=== PATIENT | female | born 2000 | race Hispanic/Latino ===

== ENCOUNTER 2018-02-20 08:02 | Inpatient (IN) | payer OTHER ==
[~2018-02-20] VITALS: Ht 160 cm; Wt 110.2 kg
[~2018-02-20 08:02] MED LIST: CLARITIN10 MG PO; POLYTRIM O200 GTT/BO OPH
[2018-02-20] MEDS ORDERED: PRENATAL TABLE1 EAC2 PO (08:37)
[2018-02-20] MEDS ORDERED: VITAMIN D250000 UNIT PO (08:38)
[2018-02-20 08:54] LABS: ABSOLUTE BASOPHIL COUNT 0 /CUMM (0.0-0.2); ABSOLUTE EOSINOPHIL COUNT 0.1 /CUMM (0.0-0.7); ABSOLUTE GRANULOCYTE CT 7.9 /CUMM (1.4-6.5); ABSOLUTE LYMPH COUNT 2.1 /CUMM (1.2-3.4); ABSOLUTE MONOCYTE COUNT 0.9 /CUMM (0.10-0.60); BASOPHIL % 0.4 % (0.0-2.0); EOSINOPHIL % 0.7 % (0-5); GRANULOCYTE % 71.6 % (42.2-75.2); HEMATOCRIT 34.2 % (37-47); MEAN CORPUSCULAR HGB 24.4 PG (27.0-31.0); MEAN CORPUSCULAR HGB CONC 32.7 G/DL (33.0-37.0); MEAN CORPUSCULAR VOLUME 74.6 FL (81.0-99.0); MEAN PLATELET VOLUME 9.2 FL (7.4-10.4); PLATELET COUNT 361 /CUMM (130-400); RBC DISTRIBUTION WIDTH 17.6 % (11.5-14.5); RED BLOOD CELL CT 4.58 /CUMM (4.20-5.40)
--- NOTE | 2018-02-20 09:43 | History & Physical Pre-Op ---
General Information and HPI MD Statement: I have seen and personally examined FREDDY HERNANDEZ and documented this H&P. The patient is a 17 year old F who presented with a patient stated chief complaint of [40 WEEK GESTATION]. History of Present Illness: 17 YO BF AT 40 WEEKS FOR INDUCTION Allergies/Medications Allergies: Coded Allergies: NO KNOWN ALLERGIES (02/20/18) Home Med list Ergocalciferol (Vitamin D2) (Vitamin D2) 50,000 UNIT CAPSULE 1 CAP PO QW SUPPLEMENT (Reported) Loratadine (Claritin) 10 MG TAB 1 TAB PO DAILY environmental allergies Polytrim (Polytrim Eye Drops) 200 GTT/BOT GTT 1 DROP OPH 4 TIMES/DAY CONJUNCTIVITIS Vit No.130/Iron/FA ( Tablet) 27 MG IRON-800 MCG TABLET 1 TAB PO DAILY SUPPLEMENT (Reported) Past History Medical History Other Medical Hx: environmental allergies Surgical History Pertinent Surgical History: non-contributory Past Family/Social History Psychosocial History Smoking Status: Former Smoker Review of Systems Review of Systems: NEGATIVE Exam & Diagnostic Data Last 24 Hrs of Vital Signs/I&O Intake & Output 02/20 1600 02/20 0800 02/20 0000 Intake Total Output Total Balance Patient 243 lb Weight Physical Exam: PE OBESE WF IN NAD HEENT PERRLA EOMI THROAT - LUNGS CLEAR ABD OBESE PELVIC 1CM 50 EXT -EDEMA Assessment/Plan Assessment/Plan: ASSESS TERM INDUCTION PLAN MISO PITOCIN RISKS REVIEWED WITH PT AND FAMILY As Ranked By This Provider Problem List: 1.
--- NOTE | 2018-02-20 13:29 | PN- Obstetrical ---
Subjective Subjective: NO COMPLAINTS Objective Last 24 Hrs of Vital Signs/I&O Intake & Output 02/20 1600 02/20 0800 02/20 0000 Intake Total Output Total Balance Patient 243 lb Weight Physical Exam: PE OBESE BF IN NAD ABD SOFT NT [id number] PELVIC 2CM 50 VTX 0 Obstetric Exam Dilation (cm): 2 Effacement (%): 50 Station: 0 Membranes: intact Fluid: unknown Multiple Gestation? Yes Contractions: NONE Assessment/Plan Assessment/Plan ASSESS TERM PLAN MISO #2 OBSERVE FOR
--- NOTE | 2018-02-20 17:53 | PN- Obstetrical ---
Subjective Subjective: NO COMPLAINTS Objective Last 24 Hrs of Vital Signs/I&O Intake & Output 02/20 1600 02/20 0800 02/20 0000 Intake Total Output Total Balance Patient 243 lb Weight Physical Exam: PE OBESE BF IN NAD HEENT PERRLA EOMI ABD SOFT NT [id number] EXT -EDEMA Obstetric Exam Dilation (cm): 2 Effacement (%): 50 Station: 0 Membranes: intact Fluid: unknown Multiple Gestation? No Contractions: Q 5MINUTES Assessment/Plan Assessment/Plan ASSESS TERM INDUCTION PLAN CONT MISO#3
--- NOTE | 2018-02-21 07:43 | PN- Obstetrical ---
Subjective Subjective: No complaints Objective Last 24 Hrs of Vital Signs/I&O Intake & Output 02/21 0800 02/21 0000 02/20 1600 Intake Total Output Total Balance Patient 243 lb Weight Physical Exam: Obese black female HEENT Abdomen soft this may feel weight 3100 g AROM Obstetric Exam Dilation (cm): 2 Effacement (%): 80 Station: 0 Membranes: AROM Fluid: clear Multiple Gestation? No Contractions: Q 3 MIN Assessment/Plan Assessment/Plan Assessment induction plan is for Pitocin closely
[2018-02-21 14:58] LABS: ABSOLUTE BASOPHIL COUNT 0 /CUMM (0.0-0.2); ABSOLUTE EOSINOPHIL COUNT 0 /CUMM (0.0-0.7); ABSOLUTE GRANULOCYTE CT 10.7 /CUMM (1.4-6.5); ABSOLUTE LYMPH COUNT 1.1 /CUMM (1.2-3.4); ABSOLUTE MONOCYTE COUNT 0.6 /CUMM (0.10-0.60); BASOPHIL % 0.3 % (0.0-2.0); EOSINOPHIL % 0 % (0-5); GRANULOCYTE % 86.5 % (42.2-75.2); HEMATOCRIT 34.2 % (37-47); MEAN CORPUSCULAR HGB 24.4 PG (27.0-31.0); MEAN CORPUSCULAR HGB CONC 32.7 G/DL (33.0-37.0); MEAN CORPUSCULAR VOLUME 74.6 FL (81.0-99.0); MEAN PLATELET VOLUME 9.2 FL (7.4-10.4); PLATELET COUNT 304 /CUMM (130-400); RBC DISTRIBUTION WIDTH 18.3 % (11.5-14.5); RED BLOOD CELL CT 4.59 /CUMM (4.20-5.40); WHITE BLOOD CELL COUNT 12.3 /CUMM (4.8-10.8)
[2018-02-22 05:30] LABS: ABSOLUTE BASOPHIL COUNT 0 /CUMM (0.0-0.2); ABSOLUTE EOSINOPHIL COUNT 0 /CUMM (0.0-0.7); ABSOLUTE GRANULOCYTE CT 6.9 /CUMM (1.4-6.5); ABSOLUTE LYMPH COUNT 1.3 /CUMM (1.2-3.4); BASOPHIL % 0.3 % (0.0-2.0); EOSINOPHIL % 0.2 % (0-5); GRANULOCYTE % 75.1 % (42.2-75.2); MEAN CORPUSCULAR HGB 24.2 PG (27.0-31.0); MEAN CORPUSCULAR HGB CONC 32.5 G/DL (33.0-37.0); MEAN CORPUSCULAR VOLUME 74.5 FL (81.0-99.0); MEAN PLATELET VOLUME 8.9 FL (7.4-10.4); PLATELET COUNT 260 /CUMM (130-400); RED BLOOD CELL CT 3.83 /CUMM (4.20-5.40); WHITE BLOOD CELL COUNT 9.3 /CUMM (4.8-10.8)
[2018-02-22 05:31] LABS: HEMATOCRIT 28.5 % (37-47)
--- NOTE | 2018-02-22 10:10 | PN- Post Delivery/GYN ---
Subjective Subjective: NO C/O; BOTTLE FEEDING; POSITIVE FLATUS; QUESTIONABLE COMPREHENSION Review of Systems: NEG Objective Last 24 Hrs of Vital Signs/I&O Vital Signs Date Time Temp Pulse Resp B/P B/P Pulse O2 O2 Flow FiO2 Mean Ox Delivery Rate 02/21 1702 101.0 02/21 1545 101.1 Physical Exam: FLAT AFFECT ABD: SOFT, NTND; INCISION C/D/I EXT: NT Assessment/Plan Assessment/Plan S/P C/S POD1 FEVER DAY 1 OF UNASYN D/C [place] ADVANCE DIET INCREASE ACTIVITY Problem List: 1.
[2018-02-22] MEDS ORDERED: DOCUSATE SODIU100 M3 PO (10:28)
[2018-02-22] MEDS ORDERED: PERCOCET 5-3251 EACH PO (10:28)
[2018-02-22] MEDS ORDERED: IBUPROFEN800 M1 PO (10:28)
--- NOTE | 2018-02-23 11:09 | PN- Post Delivery/GYN ---
Subjective Subjective: SLEEPING Review of Systems: NEG Objective Last 24 Hrs of Vital Signs/I&O VSS AFEBRILE Physical Exam: SLEEPING INCISION C/D/I PER sewer builder/Plan Assessment/Plan S/P C/S POD 2 DAY 2 ABx CHANGE TO PO DISCHARGE TOMORROW IF REMAINS AFEBRILE Problem List: 1.
--- NOTE | 2018-02-24 13:27 | Operative Report ---
Operative/Inv Procedure Report Surgery Date: 02/21/18 Name of Procedure: Primary low flap transverse section via Pfannenstiel skin incision Pre-Operative Diagnosis: 40+ weeks gestation nonreassuring heart tracing secondary to late decelerations Post-Operative Diagnosis: Same Estimated Blood Loss: scant (555) Surgeon/Die Cast Supervisor: Miguelito WHITE,Susan Olson and Dr. Srikanth Gomes Anesthesia: block Operative/Procedure Note Note: Procedure note patient was taken the operating room placed on position after adequate anesthesia patient placed in dorsolithotomy position the vagina from dorsal fashion Cross was placed patient was returned spine position and about 7 started patient had received a timeout all were in agreement at this point the abdomen was prepped and draped so fashion and was found to be adequate for surgery I to bring minutes of symptoms pubis in midline skin was cut was carried into rectus fascia was wiped the rectus sheath was dissected bluntly as well as sharply off the rectus muscle peritoneal cavity was entered high into the abdomen a lower blade the Taiban was placed in the lower end of the incision the visceral peritoneum of the uterus was dissected anteriorly to develop a bladder flap in the lower uterine segment uses nicked into the rectum dissected bluntly as well as sharply on since removed from the field was delivered over the abdominal wall cortisone clamped cut infant was suctioned with a bulb syringe was handed to telephone instrument supervisor was waiting delivering to aid in resuscitation at this point since was delivered manually uterus was wiped clean with 2R last insurance free of adherent membranes intramyometrial Pitocin intramuscular Pitocin as well as Methergine was used to uterine contractility uses oversewn rowlock suture of 0 was indicated running locking suture of 0 interrupted [id number] were used for hemostasis the abdomen was area close amounts warm sounds were clear uses turned to abdominal cavity the incision was once again irrigated times to hemostasis was apparent peritoneum was reapproximated 0 fascia was reapproximated to continue sutures 1 skin was reapproximated after subcutaneous tissue of the Bovie coagulated was a pulse sterile dressings were applied urine was clear at the end the case the counts correct mother and infant was transferred recovery room awake alert Findings: Viable female infant clear fluid with cord around the neck 2 and a cold body cord reducible
== END 2018-02-24 11:14 | DRG 540 ==
LOC: GNO 08:02
PROVIDERS: Specialist
PROC: 3E0P7VZ Introduction of Hormone into Female Reproductive, Via Natural or Artificial Opening (ICD-10-PCS; 2018-02-20)
PROC: 10D00Z1 Extraction of Products of Conception, Low, Open Approach (ICD-10-PCS; principal; 2018-02-21)
PROC: 3E033VJ Introduction of Other Hormone into Peripheral Vein, Percutaneous Approach (ICD-10-PCS; 2018-02-21)
DX: O76 Abnormality in fetal heart rate and rhythm complicating labor and delivery (principal); O99.214 Obesity complicating childbirth; E66.9 Obesity, unspecified; Z3A.40 40 weeks gestation of pregnancy; Z37.0 Single live birth
CPT/HCPCS: GNOP; GNOS; 36415; 81001; 87040; 87086; J1650; J1885; J2790; J7120